=== PATIENT | male | born 1935 | race Caucasian/White ===

== ENCOUNTER 2024-07-06 12:58 | Emergency (ER) | payer MEDICARE, SELFPAY ==
--- NOTE | 2024-07-06 12:59 | XRR_ITS ---
PROCEDURE INFORMATION: Exam: XR Right Shoulder Exam date and time: 07/06/2024 1:16 PM Age: 89 years old Clinical indication: Injury or trauma; Fall; Blunt trauma (contusions or hematomas); Injury details: PT states urgent care sent him over due to a right shoulder dislocation. PT states he tripped and fell and landed on his right arm. TECHNIQUE: Imaging protocol: Radiologic exam of the right shoulder. Views: 2 or more views. COMPARISON: CR XR shoulder RT min 2V* [id number] 07/06/2024 12:44 PM FINDINGS: Bones/joints: Anterior inferior dislocation of the humeral head with respect to the glenoid. No fractures are seen. Osteoarthrosis of the acromioclavicular joint with prominent inferior bone spurring off the acromion. Soft tissues: Normal. XR/XR shoulder RT min 2V* [id number] IMPRESSION: Anterior dislocation at the glenohumeral joint without fractures.
[2024-07-06 13:06] VITALS: BP 166/89; PULSE 67; RESP 17; TEMP 36.7; O2SAT 96; BMI 28.5
--- NOTE | 2024-07-06 13:19 | W.ED.EXTPRO ---
Documented by User: DARRYL Nobles 07/06/24 14:19 HPI - Extremity Problem General: Chief complaint: Extremity Injury, Upper Stated complaint: Fall Right shoulder injury sent by Time Seen by Provider: 07/06/24 13:11 Source: patient Mode of arrival: ambulatory Limitations: no limitations History of Present Illness: Patient is an 89-year-old male who presents the emergency department for concerns of right shoulder dislocation. 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 There is notable deformity with drooping on the right, he is reporting 10/10 pain radiating distally however has no distal neurovascular symptoms. No other injuries with the fall. Vitals unremarkable at this time. MD Complaint: joint pain Onset (ago): hour(s) Pain Consistency: constant Location: right and upper extremity (Shoulder) Severity scale (1-10): 10 Radiation: distal Exacerbating factors: range of motion Associated symptoms: Deny chest pain, fever(s) or rash Related Data Home Medications ?Medication ?Instructions ?Recorded ?Confirmed dronedarone 400 mg tablet (Multaq) 400 mg PO BID 07/06/24 07/06/24 levothyroxine 25 mcg capsule 25 mcg PO DAILY 07/06/24 07/06/24 metoprolol tartrate 25 mg tablet 25 mg PO BID 07/06/24 07/06/24 pantoprazole 40 mg tablet,delayed 40 mg PO QAM 07/06/24 07/06/24 release rivaroxaban 20 mg tablet (Xarelto) 20 mg PO DAILY 07/06/24 07/06/24 tamsulosin 0.4 mg capsule 0.4 mg PO DAILY 07/06/24 07/06/24 Allergies Allergy/AdvReac Type Severity Reaction Status Date / Time No Known Allergies Allergy Verified 07/06/24 12:33 Review of Systems General: Reports: 10 or more systems reviewed and unremarkable except in HPI and below Const: Denies: fever(s) or chills Card: Denies: chest pain Resp: Denies: dyspnea or productive cough GI: Denies: abdominal pain, nausea, vomiting or diarrhea : Denies: flank pain Musc: Reports: joint pain (Right shoulder), limited range of motion and deformity (Right shoulder); Denies: neck pain, back pain, extremity pain, extremity swelling, joint swelling, joint redness, joint warmth or muscle weakness Skin/Breast: Denies: rash Neuro: Denies: headache(s), numbness in extremities or weakness in extremities PFSH ED PFSH: Social History Smoking and tobacco/nicotine status: former use of tobacco/nicotine Physical Exam Const: COMMON NORMALS: no acute distress, patient oriented x3, no limitations, healthy appearing, alert and well nourished HENMT: COMMON NORMALS: normocephalic and atraumatic HEAD & SCALP: normocephalic and atraumatic Neck/C-Spine: COMMON NORMALS: full ROM, supple and no meningeal signs Resp: COMMON NORMALS: normal respiratory effort, No use of accessory muscles and clear to auscultation bilaterally AUSCULTATION: clear to auscultation bilaterally Cardio: COMMON NORMALS: regular rate and regular rhythm RATE: regular rate RHYTHM: regular rhythm Extremity: COMMON NORMALS: capillary refill normal, no joint enlargement and no clubbing, cyanosis or edema NARRATIVE EXTREMITY EXAM: Deformity, droop of the right shoulder. Anterior shoulder tender to palpation, severely limited to no range of motion of the right shoulder. Distal radial pulse palpable, distal strength is intact. Neuro: COMMON NORMALS: patient oriented x3, no focal motor deficits and no sensory deficits noted SENSORIUM/ORIENTATION: Yes alert MENINGEAL SIGNS: Yes no meningeal signs Skin: COMMON NORMALS: no rashes or lesions noted GENERAL SKIN EXAM: no rashes or lesions noted Course Vital Signs: Vital signs: Vital Signs Temperature 98.0 F 07/06/24 13:06 Pulse Rate 55 L 07/06/24 13:55 Respiratory Rate 16 07/06/24 13:55 Blood Pressure 149/67 07/06/24 13:55 Pulse Oximetry 94 07/06/24 13:55 Oxygen Delivery Me thod Nasal Cannula 07/06/24 13:55 MDM - Extremity (Nontraumatic) Medical Decision Making This patient presented with dislocation to his right shoulder. Neurovascular status intact on exam with obvious deformity. Dr. Edwin abdul in the ED consulted and successfully reduced the shoulder, patient placed in immobilizer and outpatient referral placed. Lab Data Radiology Impressions Shoulder X-Ray 07/06/24 12:59 IMPRESSION: Anterior dislocation at the glenohumeral joint without fractures. All radiology interpretation(s) finalized by discharge Discharge Plan Discharge Patient Disposition: Home Clinical Impression: Anterior shoulder dislocation Qualifiers: Encounter type: initial encounter Laterality: right Qualified Code(s): S43.014A - Anterior dislocation of right humerus, initial encounter Condition: Stable Prescriptions: No Action levothyroxine 25 mcg capsule 25 mcg PO DAILY tamsulosin 0.4 mg capsule 0.4 mg PO DAILY pantoprazole 40 mg tablet,delayed release (DR/EC) 40 mg PO QAM metoprolol tartrate 25 mg tablet 25 mg PO BID Multaq 400 mg tablet 400 mg PO BID Xarelto 20 mg tablet 20 mg PO DAILY Discharge Orders: Discharge ED (Routine); Ordered 07/06/24 Ordered By: Hayden Gaitan Patient Instructions: Shoulder Dislocation (ED), Shoulder Immobilizer (ED) Activity Restrictions/Additional Instructions: Shoulder immobilized as discussed. Ibuprofen and Tylenol for pain. Follow-up with orthopedics. Please return with any new or worsening. Print Language: Nauruan Coding Level of Care Code ED Pitching Coach for Chg Fwd Documented by User: Keesha Pineda MD 07/06/24 13:51 HPI - Extremity Problem General: Chief complaint: Extremity Injury, Upper Stated complaint: Fall Right shoulder injury sent by Time Seen by Provider: 07/06/24 13:11 Related Data Home Medications ?Medication ?Instructions ?Recorded ?Confirmed dronedarone 400 mg tablet (Multaq) 400 mg PO BID 07/06/24 07/06/24 levothyroxine 25 mcg capsule 25 mcg PO DAILY 07/06/24 07/06/24 metoprolol tartrate 25 mg tablet 25 mg PO BID 07/06/24 07/06/24 pantoprazole 40 mg tablet,delayed 40 mg PO QAM 07/06/24 07/06/24 release rivaroxaban 20 mg tablet (Xarelto) 20 mg PO DAILY 07/06/24 07/06/24 tamsulosin 0.4 mg capsule 0.4 mg PO DAILY 07/06/24 07/06/24 Allergies Allergy/AdvReac Type Severity Reaction Status Date / Time No Known Allergies Allergy Verified 07/06/24 12:33 [facility] ED PFSH: Social History Smoking and tobacco/nicotine status: former use of tobacco/nicotine Procedures Orthopedic Joint Reduction Joint #1: Time Out Performed: Yes Side: right Joint Reduction Location: shoulder Analgesia: procedural sedation Shoulder Technique Used (if applicable): traction/counter-traction Post-reduction neuro exam: intact Post-reduction vascular: intact Post Reduction X-Ray Obtained: Yes Post Reduction X-Ray Results: reduced Splint Applied: Yes Patient Tolerated Procedure: well Procedural Sedation Indication: fracture/dislocation reduction ASA Class: II Time of Last PO Intake: 08:00 Preparation: child monitor applied and pulse oximeter IV Propofol dose (mg): 40 Course Vital Signs: Vital signs: Vital Signs Temperature 98.0 F 07/06/24 13:06 Pulse Rate 55 L 07/06/24 13:55 Respiratory Rate 16 07/06/24 13:55 Blood Pressure 149/67 07/06/24 13:55 Pulse Oximetry 94 07/06/24 13:55 Oxygen Delivery Me thod Nasal Cannula 07/06/24 13:55 MDM - Extremity (Nontraumatic) Lab Data Radiology Impressions Shoulder X-Ray 07/06/24 12:59 IMPRESSION: Anterior dislocation at the glenohumeral joint without fractures. Discharge Plan Discharge Patient Disposition: Home Clinical Impression: Anterior shoulder dislocation Qualifiers: Encounter type: initial encounter Laterality: right Qualified Code(s): S43.014A - Anterior dislocation of right humerus, initial encounter Condition: Stable Prescriptions: No Action levothyroxine 25 mcg capsule 25 mcg PO DAILY tamsulosin 0.4 mg capsule 0.4 mg PO DAILY pantoprazole 40 mg tablet,delayed release (DR/EC) 40 mg PO QAM metoprolol tartrate 25 mg tablet 25 mg PO BID Multaq 400 mg tablet 400 mg PO BID Xarelto 20 mg tablet 20 mg PO DAILY Discharge Orders: Discharge ED (Routine); Ordered 07/06/24 Ordered By: Hayden Gaitan Patient Instructions: Shoulder Dislocation (ED), Shoulder Immobilizer (ED) Activity Restrictions/Additional Instructions: Shoulder immobilized as discussed. Ibuprofen and Tylenol for pain. Follow-up with orthopedics. Please return with any new or worsening. Print Language: Nauruan Coding Level of Care Code ED Pitching Coach for Isiah Lucas
[2024-07-06] MEDS: propofol 10 mg/mL SDV 20 mL 100 MG IVP (13:45)
[2024-07-06 13:46] VITALS: BP 161/82; PULSE 60; RESP 16; O2SAT 95
--- NOTE | 2024-07-06 13:47 | XRR_ITS ---
PROCEDURE INFORMATION: Exam: XR Right Shoulder Exam date and time: 07/06/2024 1:48 PM Age: 89 years old Clinical indication: Pain; Right; Post reduction RT shoulder TECHNIQUE: Imaging protocol: Radiologic exam of the right shoulder. Views: 1 view. COMPARISON: CR (CHEST, ) 07/06/2024 1:16 PM FINDINGS: Bones/joints: Right shoulder joint appears to be in anatomical position. Soft tissues: Normal. XR/XR shoulder RT 1V [id number] IMPRESSION: Right shoulder joint appears to be in anatomical position.
[2024-07-06 13:49] VITALS: BP 161/82; PULSE 66; RESP 14; O2SAT 96
[2024-07-06 13:55] VITALS: BP 149/67; PULSE 55; RESP 16; O2SAT 94
[2024-07-06 14:46] VITALS: BP 122/71; PULSE 59; RESP 16; O2SAT 93
--- NOTE | 2024-07-07 07:18 | DCPLANNER ---
messaged ortho for er f/u
== END 2024-07-06 14:43 | disposition home or self-care (01) ==
PROVIDERS: Emergency Provider Physician Assistant
DX: S43.014A Anterior dislocation of right humerus, initial encounter (principal); Z87.891 Personal history of nicotine dependence; W19.XXXA Unspecified fall, initial encounter
CPT/HCPCS: 73020; 73030; 99285; 99291; J2704